=== PATIENT | female | born 1940 | race Caucasian/White ===

== ENCOUNTER → 2018-07-02 08:59 | Outpatient (CLI) | payer MEDICARE, SELFPAY ==
--- NOTE | 2018-07-02 | DI.US.S_ITS ---
PROCEDURE: US ABDOMEN COMPLETE INDICATIONS: NAUSEA TECHNIQUE: Real-time scanning was performed of the abdominal and retroperitoneal organs, with image documentation. COMPARISON: None. FINDINGS: Liver: Liver is normal in size and homogeneous in echotexture. Gallbladder: Gallbladder is normal in size. There is no gallbladder wall thickening, pericholecystic fluid, or cholelithiasis. Biliary ducts: Intrahepatic bile ducts are non-dilated. Extrahepatic bile duct caliber measures 5 mm. Normal is 6-7 mm or less in diameter, or 10 mm or less post-cholecystectomy. Pancreas: Visualized portions of the pancreas are sonographically normal. Spleen: Spleen is normal in size and homogeneous in echotexture. Kidneys: Kidneys are normal in size and echotexture. Right kidney measures 12.5 cm long; left kidney measures 12.3 cm long. No hydronephrosis or nephrolithiasis. No solid masses. Aorta: Visualized aorta is normal in caliber at less than 3 cm. Iliacs: Obscured by bowel gas. IVC: Intrahepatic inferior vena cava is patent. Miscellaneous: No free abdominal fluid. IMPRESSION: Unremarkable abdominal ultrasound. No cholelithiasis or hydronephrosis. Dictated by: Narciso Mcleod M.D. on 07/02/2018 at 9:24 Approved by: Narciso Mcleod M.D. on 07/02/2018 at 9:25
== END ==
PROVIDERS: PCP Nurse Practitioner Family; Visit Provider Nurse Practitioner Family
DX: R11.0 Nausea (principal)
CPT/HCPCS: 76700

== ENCOUNTER → 2019-09-19 10:50 | Outpatient (CLI) | payer MEDICARE, SELFPAY ==
--- NOTE | 2019-09-19 | DI.CT.S_ITS ---
PROCEDURE: CT ABDOMEN PELVIS W CON INDICATIONS: Right lower quadrant pain TECHNIQUE: After the administration of oral and intravenous contrast, 5 mm thick sections acquired from the diaphragms to the symphysis. 5 mm thick coronal and sagittal reformats were performed. For radiation dose reduction, the following was used: automated exposure control, adjustment of mA and/or kV according to patient size. COMPARISON: None. FINDINGS: Image quality: Excellent. ABDOMEN: Lung bases: Lung bases are clear. Heart size is normal. Solid organs: Liver is normal in size and enhancement. Gallbladder appears normal. Biliary system is non-dilated. Pancreas enhances normally. Spleen is normal in size and enhancement. No adrenal nodules. Kidneys are normal in size and enhancement, without hydronephrosis. Peritoneum and bowel: Stomach, small bowel, and colon loops are normal in caliber and wall thickness. No free fluid or air. Nodes and vessels: No retroperitoneal or mesenteric adenopathy. Aorta and inferior vena cava are normal in caliber. Miscellaneous: No ventral hernias. PELVIS: Genitourinary: Bladder wall thickness is normal. Miscellaneous: No inguinal hernias or adenopathy. There is sigmoid diverticulosis without acute diverticulitis. A normal appendix is found at the right lower quadrant. Bones: No suspicious bony lesions. No vertebral body compression fractures. IMPRESSION: Source of current right lower quadrant pain is not identified. A normal appendix was located emanating from the cecum. Sigmoid diverticulosis on the left is present, relatively prominent, but without acute diverticulitis or extension of inflammatory change from left to right. Dictated by: Mitch Candelario M.D. on 09/19/2019 at 15:53 Approved by: Mitch Candelario M.D. on 09/19/2019 at 15:55
[2019-09-19 11:24] LABS: Alanine Aminotransferase 25 IU/L (<35); Albumin Globulin Ratio 1.3 (1.0-2.8); Alkaline Phosphatase 101 U/L (38-126); Aspartate Aminotransferase 41 IU/L (14-36); Bilirubin Total 0.6 mg/dL (0.2-1.3); Blood Urea Nitrogen 15 mg/dL (7-17); Carbon Dioxide 33 mmol/L (22-32); Chloride 99 mmol/L (98-107); Estimated Glomerular Filt Rate > 60.0 mL/min (>60); Globulin 3.2 g/dL (1.7-4.1); Glucose 102 mg/dL (80-110); HEMOLYSIS < 15 (0-50); Potassium 3.6 mmol/L (3.4-5.1); Sodium 139 mmol/L (137-145); Total Protein 7.2 g/dL (6.3-8.2)
== END ==
PROVIDERS: PCP Nurse Practitioner Family; Visit Provider Family Medicine
DX: R10.31 Right lower quadrant pain (principal); K57.30 Diverticulosis of large intestine without perforation or abscess without bleeding
CPT/HCPCS: 36415; 74177; 80053; Q9967

== ENCOUNTER → 2020-10-04 09:08 | Outpatient (CLI) | payer MEDICARE, SELFPAY ==
--- NOTE | 2020-10-04 09:12 | DI.ECHO.S_ITS ---
Version: 1 Study ID: [id number] [place] [address] Name: CORNELL ROSALES Study Date: 10/04/2020, 9: 45 AM : 1940 BP: 145 / 84 mmHg Gender: Female Height: 62 in Age: 80 Years Weight: 176 lb BSA: 1.81 mA? Ordering: CESAR SIEGEL Referring: ABBEY ANGUIANO Clinician: Tatiana Santana Reason For Study: PERICARDIAL EFFUSION History: Summary Statements This is a limited echo to evaluate for possible pericardial effusion. Normal sinus rhythm. Normal LV size, wall thickness, wall motion and LV systolic function. EF is 60-65%. There is trace pericardial effusion with no evidence of tamponade. Compared to prior study 07/23/2020, moderate to large pericardial effusion is no longer seen. Procedure: A two-dimensional transthoracic echocardiogram with color flow and Doppler was performed in limited views only. The study quality was technically adequate. Left Ventricle: The ejection fraction is estimated to be 60-65%. The left ventricle is normal in size and wall thickness. Right Ventricle: Atria: Mitral Valve: Aortic Valve: Pulmonic Valve: Great Vessels: The IVC is of normal diameter and collapses greater than 50% with a sniff. This suggests a low right atrial pressure of 3 mm Hg. Pericardium/ Pleura: There is a trivial pericardial effusion noted. There is no pleural effusion. 2D and M-Mode Measurements and Calculations LVIDd: 4.7 cm LVIDs: 3.0 cm IVSd: 0.73 cm LVPWd: 0.89 cm LV freedman. diameter/BSA (cm/m^2): 2.6 LV sys. diameter/BSA (cm/m^2): 1.68 IVC diam: 1.32 cm Electronically signed by: Cesar Siegel M.D. 10/06/2020, 8: 29 AM
== END ==
PROVIDERS: PCP Family Medicine; Referring Provider Internal Medicine; Visit Provider Internal Medicine
DX: I31.3 Pericardial effusion (noninflammatory) (principal)
CPT/HCPCS: 93307

== ENCOUNTER → 2021-05-07 10:57 | Outpatient (CLI) | payer MEDICARE, SELFPAY ==
[2021-05-07 20:29] LABS: Alanine Aminotransferase 19 IU/L (<35); Albumin 3.8 g/dL (3.5-5.0); Albumin Globulin Ratio 1.3 (1.0-2.8); Alkaline Phosphatase 97 U/L (38-126); Aspartate Aminotransferase 26 IU/L (14-36); Bilirubin Total 0.7 mg/dL (0.2-1.3); Blood Urea Nitrogen 15 mg/dL (7-17); Calcium 9.8 mg/dL (8.4-10.2); Carbon Dioxide 31 mmol/L (22-32); Chloride 103 mmol/L (98-107); Estimated Glomerular Filt Rate > 60.0 mL/min (>60); Glucose 93 mg/dL (80-110); HEMOLYSIS < 15 (0-50); Sodium 139 mmol/L (137-145); Total Protein 6.8 g/dL (6.3-8.2)
[2021-05-07 20:37] LABS: High Sensitivity CRP - Cardiac 5.8 mg/L (1.0-3.0)
== END ==
PROVIDERS: PCP Family Medicine; Visit Provider Physician Assistant
DX: E87.6 Hypokalemia (principal); I10 Essential (primary) hypertension; R79.82 Elevated C-reactive protein (CRP)
CPT/HCPCS: 80053; 86140

== ENCOUNTER → 2022-05-15 14:11 | Outpatient (CLI) | payer MEDICARE, SELFPAY ==
[2022-05-15 20:30] LABS: Alanine Aminotransferase 18 IU/L (<35); Albumin 3.6 g/dL (3.5-5.0); Albumin Globulin Ratio 1.2 (1.0-2.8); Alkaline Phosphatase 101 U/L (38-126); Aspartate Aminotransferase 22 IU/L (14-36); BUN Creatinine Ratio 23.6 (6-22); Bilirubin Total 0.5 mg/dL (0.2-1.3); Blood Urea Nitrogen 17 mg/dL (7-17); Calcium 8.6 mg/dL (8.4-10.2); Carbon Dioxide 29 mmol/L (22-32); Chloride 102 mmol/L (98-107); Estimated Glomerular Filt Rate > 60 mL/min (>60); Globulin 2.9 g/dL (1.7-4.1); Glucose 106 mg/dL (80-110); HEMOLYSIS < 15 (0-50); Potassium 3.5 mmol/L (3.4-5.1); Sodium 139 mmol/L (137-145); Total Protein 6.5 g/dL (6.3-8.2)
[2022-05-15 20:40] LABS: Add Manual Diff / Slide Review NO; Basophils Absolute Auto 100 /uL (0-100); Basophils Percent Auto 0.9 % (0-2); Eosinophils Absolute Auto 200 /uL (0-450); Eosinophils Percent Auto 3.2 % (2-4); Hematocrit 40.5 % (36-46); Hemoglobin 13.9 g/dL (12.0-16.0); Lymphocytes Absolute Auto 1400 /uL (1100-4500); Lymphocytes Percent Auto 18.5 % (25-40); Mean Corpuscular HGB Conc 34.4 % (30-36); Mean Corpuscular Hemoglobin 33.4 PG (26-34); Mean Corpuscular Volume 97.1 fL (80-100); Monocytes Absolute Auto 400 /uL (0-900); Monocytes Percent Auto 5.5 % (3-14); Neutrophils Absolute Auto 5500 /uL (1500-7000); Neutrophils Percent Auto 71.9 % (50-75); Platelet Count 223 X10^3/uL (150-400); Red Blood Cell Count 4.17 X10^6/uL (4.0-5.2); White Blood Cell Count 7.7 X10^3/uL (4.5-11.0)
[2022-05-15 20:48] LABS: Free T4, Direct Thyroxine 1.12 ng/dL (0.78-2.19)
== END ==
PROVIDERS: PCP Internal Medicine; Visit Provider Internal Medicine
DX: R60.1 Generalized edema (principal); R06.00 Dyspnea, unspecified
CPT/HCPCS: 80053; 84439; 84443; 85025

== ENCOUNTER → 2022-07-30 10:54 | Outpatient (CLI) | payer MEDICARE, SELFPAY ==
--- NOTE | 2022-07-30 | DI.ECHO.S_ITS ---
[facility]---------+ [facility] +---------+ : : [address] : : : : [id number] : : : : Phone: [phone] Echocardiogram Report + + :Name: CORNELL ROSALES Study Date: 07/30/2022 Height: 63 in : :[facility] ReadingLocation: Weight: 186 lb : : Gender: Female BSA: 1.9 m2 : :: 1940 Age: 82 yrs BP: 141/80 mmHg: :Reason For Study: DYSPNEA : :Ordering Physician: ROBBIN, : :CESAR Performed By: Tatiana Santana : :Referring: CESAR SIEGEL : + + Interpretation Summary Normal sinus rhythm. Normal LV size and wall thickness. Normal wall motion and LV systolic function; EF is 60-65%. Stage I diastolic dysfunction. Normal chamber sizes. No significant valvular abnormalities. No prior study available for comparison. Procedure: A two-dimensional transthoracic echocardiogram with color flow and Doppler was performed. The study quality was technically adequate. Comparison is made with the echocardiogram of 10/04/2020. The patient was in sinus rhythm with heart rates between 59-67 bpm during the exam. Left Ventricle: The left ventricle is normal in size and wall thickness. The ejection fraction is estimated to be 60-65%. Right Ventricle: The right ventricle is normal size. The right ventricular systolic function is normal. Atria: The left atrial size is normal. Right atrial size is normal. There is no Doppler evidence for an interatrial shunt. Mitral Valve: The mitral valve leaflets appear borderline thickened, but open well. There is moderate mitral annular calcification. There is mild mitral regurgitation. Aortic Valve: The aortic valve is trileaflet. The aortic valve opens well. There is no aortic valve stenosis. No aortic regurgitation is present. Tricuspid Valve: The tricuspid valve is normal in structure and function. There is mild tricuspid regurgitation. The right ventricular systolic pressure is estimated to be at least 31 mmHg based on an estimated right atrial pressure of 3 mm Hg. Pulmonic Valve: The pulmonic valve leaflets are thin and pliable; valve motion is normal. There is trace pulmonic regurgitation. Great Vessels: The aortic root is normal size. The dimensions of the ascending aorta are normal. The IVC is of normal diameter and collapses greater than 50% with a sniff. This suggests a low right atrial pressure of 3 mm Hg. Pericardium/ Pleura There is no pericardial effusion. There is no pleural effusion. MMode/2D Measurements & Calculations LVIDd: 4.5 cm LVOT diam: 2.0 cm LVIDs: 2.8 cm Ao root diam: 3.0 cm FS: 38.5 % asc Aorta Diam: 3.6 cm IVSd: 0.89 cm Ao Arch Diam (Prox Trans): 2.5 cm LVPWd: 1.0 cm LV freedman. diameter/BSA (cm/m^2): 2.4 LV sys. diameter/BSA (cm/m^2): 1.5 LA A2 area: 15.5 cm2 RA long axis: 4.7 cm LA A4 area: 14.9 cm2 RA area: 13.9 cm2 LA length (vol): 4.7 cm RA vol: 35.0 ml LA vol: 42.0 ml RA : 18.7 ml/m2 LA vol index: 22.4 ml/m2 IVC diam: 1.1 cm RVD1 (basal): 2.6 cm RVD2 (mid): 2.5 cm TAPSE: 1.7 cm Doppler Measurements & Calculations Ao V2 max: 124.1 cm/sec LVOT Max Ru: 108.5 cm/sec Ao V2 mean: 87.4 cm/sec LV V1 max P.7 mmHg Ao max P.2 mmHg LV V1 VTI: 26.6 cm Ao mean P.4 mmHg PATRICK(I,D): 2.8 cm2 Ao V2 VTI: 28.9 cm PATRICK(V,D): 2.7 cm2 sev ratio: 0.92 PATRICK indexed to BSA (cm^2/m^2): 1.5 MV E max ru: 89.5 cm/sec TR max ru: 263.3 cm/sec MV A max ru: 116.3 cm/sec TR max P.7 mmHg MV E/A: 0.77 PA V2 max: 88.0 cm/sec Med Peak E' Ru: 6.1 cm/sec PA V2 mean: 59.3 cm/sec E/E' med: 14.6 PA mean P.6 mmHg Lat Peak E' Ru: 8.1 cm/sec PA pr(Accel): 13.9 mmHg E/E' lat: 11.1 E/e' average: 12.9 MV dec time: 0.28 sec SV(LVOT): 81.7 ml Electronically signed by: Cesar Siegel M.D. on Reading Physician:08/04/2022 05:45 AM
== END ==
PROVIDERS: PCP Family Medicine; Referring Provider Internal Medicine; Visit Provider Internal Medicine
DX: I08.1 Rheumatic disorders of both mitral and tricuspid valves (principal); R06.00 Dyspnea, unspecified
CPT/HCPCS: 93306

== ENCOUNTER → 2023-01-26 13:26 | Outpatient (CLI) | payer MEDICARE, SELFPAY ==
[2023-01-26 20:15] LABS: Add Manual Diff / Slide Review NO; Basophils Absolute Auto 100 /uL (0-100); Basophils Percent Auto 0.8 % (0-2); Eosinophils Absolute Auto 100 /uL (0-450); Eosinophils Percent Auto 1.5 % (2-4); Hematocrit 44.2 % (36-46); Hemoglobin 15.2 g/dL (12.0-16.0); Lymphocytes Absolute Auto 1600 /uL (1100-4500); Lymphocytes Percent Auto 19.1 % (25-40); Mean Corpuscular HGB Conc 34.4 % (30-36); Mean Corpuscular Hemoglobin 33.2 PG (26-34); Mean Corpuscular Volume 96.4 fL (80-100); Monocytes Absolute Auto 500 /uL (0-900); Neutrophils Absolute Auto 5900 /uL (1500-7000); Neutrophils Percent Auto 72.6 % (50-75); Platelet Count 237 X10^3/uL (150-400); Red Blood Cell Count 4.59 X10^6/uL (4.0-5.2); Red Cell Distribution Width 14.1 % (11.6-14.8); White Blood Cell Count 8.1 X10^3/uL (4.5-11.0)
[2023-01-26 20:31] LABS: Blood Urea Nitrogen 17 mg/dL (7-17); Calcium 9.2 mg/dL (8.4-10.2); Carbon Dioxide 28 mmol/L (22-32); Chloride 103 mmol/L (98-107); Estimated Glomerular Filt Rate > 60 mL/min (>60); Glucose 91 mg/dL (80-110); HEMOLYSIS < 15 (0-50); Potassium 4.2 mmol/L (3.4-5.1); Sodium 136 mmol/L (137-145)
[2023-01-26 20:35] LABS: Erythrocyte Sedimentation Rate 18 MM/HR (0-20)
[2023-01-29 15:58] LABS: ANA Screen, IFA Negative (.)
== END ==
PROVIDERS: PCP Family Medicine; Visit Provider Family Medicine
DX: M25.561 Pain in right knee (principal); M25.562 Pain in left knee; M79.10 Myalgia, unspecified site
CPT/HCPCS: 80048; 85025; 85651; 86038

== ENCOUNTER → 2023-02-12 08:47 | Outpatient (CLI) | payer MEDICARE, SELFPAY ==
--- NOTE | 2023-02-12 08:48 | DI.US.S_ITS ---
LIMITED ULTRASOUND OF RIGHT BREAST: 02/12/2023 CLINICAL: Abnormal mammogram. Comparison is made to exams dated: 02/12/2023 mammogram - [facility], 01/20/2023 mammogram, 04/16/2021 mammogram, and 09/13/2019 mammogram - Outside facility. Color flow and real-time ultrasound of the right breast 10-11 o'clock region were performed. Liu scale images of the real-time examination were reviewed. There is a benign 1 cm x 1 cm x 0.5 cm oval simple cyst in the right breast at 11 o'clock anterior depth 3 cm from the nipple. This oval simple cyst is anechoic. This correlates with mammography findings. Color flow imaging demonstrates that there is no vascularity present. There also is a benign 0.8 cm x 0.7 cm x 0.4 cm oval simple cyst in the right breast at 10 o'clock anterior depth 2 cm from the nipple. This oval simple cyst is anechoic. This correlates as an incidental finding. Color flow imaging demonstrates that there is no vascularity present. IMPRESSION: BENIGN There is no sonographic evidence of malignancy. The 1 cm simple cyst in the right breast at 11 o'clock anterior depth is benign. The 0.8 cm simple cyst in the right breast at 10 o'clock anterior depth is benign. A 1 year screening mammogram is recommended. Exam findings were conveyed to the patient. This exam was interpreted at Station ID: [id number]. Electronically Signed By: Zander Zaman M.D. [facility] [place]/:02/12/2023 09:48:17 Entry: - 02/12/2023 11:21:03 Ultrasound BI-RADS: 2 Benign
--- NOTE | 2023-02-12 08:48 | DI.MG.S_ITS ---
BILATERAL DIGITAL DIAGNOSTIC MAMMOGRAM 3D/2D WITH ADDITIONAL VIEWS: 02/12/2023 CLINICAL: Additional evaluation requested from prior study. Comparison is made to exams dated: 01/20/2023 mammogram, 04/16/2021 mammogram, and 09/13/2019 mammogram - Outside facility. Both breasts are heterogeneously dense, which may obscure small masses (category c / 51-75% glandular tissue). There is an oval mass with an obscured and circumscribed margin in the right breast at 11 o'clock anterior depth. There is an oval mass with an obscured and circumscribed margin in the left breast at 12 o'clock anterior depth. No other significant masses or calcifications are seen in either breast. IMPRESSION: INCOMPLETE: NEEDS ADDITIONAL IMAGING EVALUATION The oval mass in the right breast at 11 o'clock anterior depth resembles a cyst and is indeterminate. The oval mass in the left breast at 12 o'clock anterior depth resembles a cyst and is indeterminate. A targeted ultrasound is recommended and will immediately follow. Based on the Tyrer Cuzick model (a risk assessment model) the patient's lifetime risk is 1.0% and her 10 year risk is 0.0%. According to the ACR, ACS, and NCCN guidelines, an annual breast MRI exam along with mammogram is recommended if the patient's lifetime risk is 20% or greater. This exam was interpreted at Station ID: [id number]. NOTE: For mammograms, a report in lay terms will be sent to the patient. Approximately 15% of breast malignancies will not be visualized mammographically. In the management of a palpable breast mass, a negative mammogram must not discourage biopsy of a clinically suspicious lesion. Electronically Signed By: Zander Zaman M.D. slc/:02/12/2023 09:24:29 ACR BI-RADS Category 0: Incomplete 3340F
--- NOTE | 2023-02-12 08:48 | DI.US.S_ITS ---
LIMITED ULTRASOUND OF LEFT BREAST: 02/12/2023 CLINICAL: Abnormal mammogram. Comparison is made to exams dated: 02/12/2023 ultrasound - [facility], 01/20/2023 mammogram - Outside facility, 02/12/2023 mammogram - [facility], 04/16/2021 mammogram, and 09/13/2019 mammogram - Outside facility. Color flow and real-time ultrasound of the left breast 12 o'clock region were performed. Liu scale images of the real-time examination were reviewed. There is a benign 1.8 cm x 1.8 cm x 0.7 cm oval simple cyst in the left breast at 12 o'clock anterior depth 2 cm from the nipple. This oval simple cyst is anechoic. This correlates with mammography findings. Color flow imaging demonstrates that there is no vascularity present. IMPRESSION: BENIGN There is no sonographic evidence of malignancy. The 1.8 cm simple cyst in the left breast is benign. A 1 year screening mammogram is recommended. Exam findings were conveyed to the patient. This exam was interpreted at Station ID: [id number]. Electronically Signed By: Zander Zaman M.D. slc/:02/12/2023 09:45:34 letter sent: Normal Exam Ultrasound BI-RADS: 2 Benign
== END ==
PROVIDERS: PCP Family Medicine; Referring Provider Family Medicine; Visit Provider Family Medicine
DX: N60.01 Solitary cyst of right breast; R92.8 Other abnormal and inconclusive findings on diagnostic imaging of breast
CPT/HCPCS: 76642; 77066; G0279

== ENCOUNTER → 2023-07-02 11:45 | Outpatient (CLI) | payer MEDICARE, SELFPAY ==
--- NOTE | 2023-07-02 | DI.RAD.S_ITS ---
PROCEDURE: XR CHEST 2V INDICATIONS: SHORTNESS OF BREATH TECHNIQUE: 2 views of the chest were acquired. COMPARISON: [facility] ([place]), CR, XR CHEST 2V, 05/15/2022, 14:08. FINDINGS: Surgical changes and devices: None. Lungs and pleura: Lungs are clear. No pleural effusions or pneumothorax. Mediastinum: Mediastinal contours are normal. Heart size is normal. Bones and chest wall: No suspicious bony abnormalities. Soft tissues appear unremarkable. IMPRESSION: No acute cardiopulmonary abnormality is seen. Dictated by: Susan Andino MD, PhD on 07/02/2023 at 13:19 Approved by: Susan Andino MD, PhD on 07/02/2023 at 13:20
== END ==
PROVIDERS: PCP Family Medicine; Referring Provider Internal Medicine; Visit Provider Internal Medicine
DX: R06.00 Dyspnea, unspecified (principal); R06.02 Shortness of breath
CPT/HCPCS: 71046

== ENCOUNTER → 2023-07-07 14:53 | Outpatient (CLI) | payer MEDICARE, SELFPAY ==
[2023-07-07 15:52] LABS: Aspartate Aminotransferase 25 IU/L (14-36); BUN Creatinine Ratio 27.6 (6-22); Blood Urea Nitrogen 21 mg/dL (7-17); Calcium 9.4 mg/dL (8.4-10.2); Carbon Dioxide 30 mmol/L (22-32); Chloride 101 mmol/L (98-107); Cholesterol 138 mg/dL (140-199); Estimated Glomerular Filt Rate > 60 mL/min (>60); Glucose 99 mg/dL (80-110); HDL Cholesterol 34 mg/dL (40-60); LDL Cholesterol Calculated 75 mg/dL (<100); Potassium 3.9 mmol/L (3.4-5.1); Sodium 137 mmol/L (137-145); Triglycerides 147 mg/dL (35-150)
[2023-07-07 15:58] LABS: HEMOLYSIS 57 (0-50)
== END ==
PROVIDERS: PCP Internal Medicine; Referring Provider Internal Medicine; Visit Provider Internal Medicine
DX: E78.2 Mixed hyperlipidemia (principal)
CPT/HCPCS: 36415; 80048; 80061; 84450

== ENCOUNTER → 2024-01-14 14:11 | Outpatient (CLI) | payer MEDICARE, SELFPAY ==
[2024-01-14 15:10] LABS: Hematocrit 43.7 % (36-46); Mean Corpuscular HGB Conc 34.4 % (30-36); Mean Corpuscular Hemoglobin 33.6 PG (26-34); Mean Corpuscular Volume 97.8 fL (80-100); Platelet Count 219 X10^3/uL (150-400); Red Blood Cell Count 4.47 X10^6/uL (4.0-5.2); Red Cell Distribution Width 13.9 % (11.6-14.8)
[2024-01-14 16:09] LABS: Alanine Aminotransferase 21 IU/L (<35); Albumin 3.8 g/dL (3.5-5.0); Albumin Globulin Ratio 1.2 (1.0-2.8); Alkaline Phosphatase 115 U/L (38-126); Aspartate Aminotransferase 25 IU/L (14-36); BUN Creatinine Ratio 26.8 (6-22); Bilirubin Total 0.6 mg/dL (0.2-1.3); Blood Urea Nitrogen 19 mg/dL (7-17); Carbon Dioxide 29 mmol/L (22-32); Chloride 105 mmol/L (98-107); Cholesterol 146 mg/dL (140-199); Estimated Glomerular Filt Rate > 60 mL/min (>60); Globulin 3.3 g/dL (1.7-4.1); Glucose 120 mg/dL (80-110); HDL Cholesterol 37 mg/dL (40-60); HEMOLYSIS < 15 (0-50); LDL Cholesterol Calculated 84 mg/dL (<100); Potassium 3.6 mmol/L (3.4-5.1); Sodium 139 mmol/L (137-145); Total Protein 7.1 g/dL (6.3-8.2); Triglycerides 125 mg/dL (35-150)
[2024-01-14 16:38] LABS: TSH w/ Reflex to FT4 1.06 uIU/mL (0.47-4.68)
== END ==
PROVIDERS: PCP Internal Medicine; Referring Provider Internal Medicine; Visit Provider Internal Medicine
DX: E78.2 Mixed hyperlipidemia (principal); I10 Essential (primary) hypertension
CPT/HCPCS: 80053; 80061; 84443; 85027

== ENCOUNTER → 2024-04-20 13:12 | Outpatient (CLI) | payer MEDICARE, SELFPAY ==
--- NOTE | 2024-04-20 13:13 | DI.NM.S_ITS ---
PROCEDURE: NM EXERCISE TREADMILL NON NUC COMPARISON: None. INDICATIONS: DYSPNEA FINDINGS: The patient exercised for 3 minutes and 10 seconds reaching 90% of maximum predicted heart rate. Appropriate BP response to exercise. Reduced exercise capacity (3.3METs, LYLE +27%). No diagnostic ST changes and no ectopy during exercise or recovery. No angina during the study. IMPRESSION: Low risk, normal treadmill ECG stress test from inducible ischemia standpoint. Reduced exercise capacity (3.3METs, LYLE +27%). Dictated by: Maty De La Vega MD on 04/20/2024 at 17:15 Approved by: Maty De La Vega MD on 04/20/2024 at 17:16
--- NOTE | 2024-04-20 13:13 | DI.ECHO.S_ITS ---
[facility] +---------+ [facility] : : [address] : : [place] : : [id number] : : Phone: [phone] Echocardiogram Report + + :Name: CORNELL ROSALES Study Date: 04/20/2024 Height: 63 in : :[facility] ReadingLocation: Weight: 185 lb : : Gender: Female BSA: 1.9 m2 : :: 1940 Age: 84 yrs BP: 127/81 mmHg: :Reason For Study: DYSPNEA : :Ordering Physician: ROBBIN, : :CESAR Performed By: Tatiana Santana : :Referring: CESAR SIEGEL : + + Interpretation Summary Normal sinus rhythm. Normal LV size and wall thickness. Normal wall motion and LV systolic function; EF is 60-65%. Stage I diastolic dysfunction. Normal chamber sizes. No significant valvular abnormalities. Compared to prior echo 07/2022, no changes have occurred. Procedure: A two-dimensional transthoracic echocardiogram with color flow and Doppler was performed. The study quality was technically adequate. Comparison is made with the echocardiogram of 07/30/2022. The patient was in sinus rhythm with heart rates between 64-71 bpm during the exam. Left Ventricle: The left ventricle is normal in size and wall thickness. The ejection fraction is estimated to be 60-65%. Right Ventricle: The right ventricle is normal in size and function. Atria: The left atrial size is normal. Right atrial size is normal. There is no Doppler evidence for an interatrial shunt. Mitral Valve: There is mild mitral annular calcification. The mitral valve leaflets appear mildly thickened, but open well. There is mild mitral regurgitation. Aortic Valve: The aortic valve is trileaflet. The aortic valve opens well. There is no aortic valve stenosis. No aortic regurgitation is present. Tricuspid Valve: The tricuspid valve is normal in structure and function. There is mild tricuspid regurgitation. The right ventricular systolic pressure is estimated to be at least 28 mmHg based on an estimated right atrial pressure of 3 mm Hg. Pulmonic Valve: The pulmonic valve leaflets are thin and pliable; valve motion is normal. There is trace pulmonic regurgitation. Great Vessels: The aortic root is normal size. The dimensions of the ascending aorta are normal. The IVC is of normal diameter and collapses greater than 50% with a sniff. This suggests a low right atrial pressure of 3 mm Hg. Pericardium/ Pleura There is no pericardial effusion. There is no pleural effusion. MMode/2D Measurements & Calculations LVIDd: 4.2 cm LVOT diam: 2.0 cm LVIDs: 2.7 cm Ao root diam: 2.8 cm FS: 35.3 % asc Aorta Diam: 3.4 cm IVSd: 0.91 cm Ao Arch Diam (Prox Trans): 2.7 cm LVPWd: 0.76 cm LV freedman. diameter/BSA (cm/m^2): 2.2 LV sys. diameter/BSA (cm/m^2): 1.4 LA A2 area: 16.7 cm2 RA long axis: 4.8 cm LA A4 area: 14.3 cm2 RA area: 14.8 cm2 LA length (vol): 4.5 cm RA vol: 38.2 ml LA vol: 44.7 ml RA : 20.4 ml/m2 LA vol index: 23.9 ml/m2 IVC diam: 1.4 cm RVD1 (basal): 2.9 cm TAPSE: 1.8 cm Doppler Measurements & Calculations Ao V2 max: 139.6 cm/sec LVOT Max Ru: 134.2 cm/sec Ao V2 mean: 96.1 cm/sec LV V1 max P.2 mmHg Ao max P.8 mmHg LV V1 VTI: 29.8 cm Ao mean P.0 mmHg PATRICK(I,D): 3.1 cm2 Ao V2 VTI: 30.3 cm PATRICK(V,D): 3.1 cm2 sev ratio: 0.98 PATRICK indexed to BSA (cm^2/m^2): 1.7 MV E max ru: 87.1 cm/sec TR max ru: 251.4 cm/sec MV A max ru: 108.1 cm/sec TR max P.3 mmHg MV E/A: 0.81 PA V2 max: 87.2 cm/sec Med Peak E' Ru: 6.0 cm/sec PA V2 mean: 61.1 cm/sec E/E' med: 14.4 PA mean P.6 mmHg Lat Peak E' Ru: 7.0 cm/sec PA pr(Accel): 22.5 mmHg E/E' lat: 12.4 E/e' average: 13.4 MV dec time: 0.21 sec SV(LVOT): 95.2 ml Electronically signed by: Cesar Siegel M.D. on Reading Physician:04/24/2024 12:33 PM
== END ==
LOC: ECHO 13:12
PROVIDERS: Family Provider Internal Medicine; PCP Internal Medicine; Referring Provider Internal Medicine; Visit Provider Internal Medicine
DX: R06.00 Dyspnea, unspecified (principal); R06.02 Shortness of breath
CPT/HCPCS: 93017; 93306

== ENCOUNTER → 2024-05-04 11:47 | Outpatient (CLI) | payer MEDICARE, SELFPAY ==
[2024-05-04 13:40] LABS: COVID-19 CEPHEID 4-PLEX PCR POSITIVE (Negative); Influenza A - CEPHEID Flu A NEGATIVE (NEGATIVE); Influenza B - CEPHEID Flu B NEGATIVE (NEGATIVE); Respiratory Syncytial Virus Negative (Negative)
== END ==
PROVIDERS: Family Provider Internal Medicine; PCP Internal Medicine; Visit Provider Nurse Practitioner Family
DX: R05.1 Acute cough (principal)
CPT/HCPCS: 0241U

== ENCOUNTER → 2024-05-20 09:47 | Outpatient (CLI) | payer MEDICARE, SELFPAY ==
--- NOTE | 2024-05-20 09:48 | DI.RAD.S_ITS ---
PROCEDURE: XR CHEST 2V INDICATIONS: Cough TECHNIQUE: 2 views of the chest were acquired. COMPARISON: [facility], CR, XR CHEST 2V, 07/02/2023, 11:54. FINDINGS: Surgical changes and devices: None. Lungs and pleura: Lungs are clear. No pleural effusions or pneumothorax. Mediastinum: Mediastinal contours are normal. Heart size is normal. Bones and chest wall: No suspicious bony abnormalities. Soft tissues appear unremarkable. IMPRESSION: No acute cardiopulmonary process. Dictated by: Nithin Carter M.D. on 05/20/2024 at 14:36 Approved by: Nithin Carter M.D. on 05/20/2024 at 14:42
== END ==
PROVIDERS: Family Provider Internal Medicine; PCP Internal Medicine; Referring Provider Nurse Practitioner Family; Visit Provider Nurse Practitioner Family
DX: R05.9 Cough, unspecified (principal)
CPT/HCPCS: 71046

== ENCOUNTER → 2024-08-25 15:45 | Outpatient (CLI) | payer MEDICARE, SELFPAY ==
--- NOTE | 2024-08-25 15:47 | DI.MG.S_ITS ---
BILATERAL DIGITAL SCREENING MAMMOGRAM 3D/2D WITH CAD: 08/25/2024 CLINICAL: Routine screening. Comparison is made to exams dated: 01/20/2023 mammogram, 04/16/2021 mammogram, and 09/13/2019 mammogram - Outside facility. The breasts are heterogeneously dense, which may obscure small masses (category c / 51-75% glandular tissue). Current study was also evaluated with a Computer Aided Detection (CAD) system. There is a benign cyst in the right breast. There also are benign calcifications in both breasts. No significant masses, calcifications, or other findings are seen in either breast. There has been no significant interval change. IMPRESSION: BENIGN There is no mammographic evidence of malignancy. A 1 year screening mammogram is recommended. Based on the Tyrer Cuzick model (a risk assessment model) the patient's lifetime risk is 0.6% and her 10 year risk is 0.0%. According to the ACR, ACS, and NCCN guidelines, an annual breast MRI exam along with mammogram is recommended if the patient's lifetime risk is 20% or greater. This exam was interpreted at Station ID: [id number]. NOTE: For mammograms, a report in lay terms will be sent to the patient. Approximately 15% of breast malignancies will not be visualized mammographically. In the management of a palpable breast mass, a negative mammogram must not discourage biopsy of a clinically suspicious lesion. Electronically Signed By: Gita herr/jana:09/02/2024 10:54:30 copy to: ZAKIYA WALLACE letter sent: Normal Exam ACR BI-RADS Category 2: Benign
--- NOTE | 2024-08-25 15:48 | DI.RAD.S_ITS ---
PROCEDURE: XR CHEST 2V INDICATIONS: Acute cough TECHNIQUE: 2 views of the chest were acquired. COMPARISON: [facility], CR, XR CHEST 2V, 05/20/2024, 9:46. [facility], CR, XR CHEST 2V, 07/02/2023, 11:54. FINDINGS: Surgical changes and devices: None. Lungs and pleura: No dense consolidation or pleural effusions. Mediastinum: Normal heart size Bones and chest wall: Degenerative changes. IMPRESSION: No acute radiographic abnormality. Dictated by: Hernán Brooks M.D. on 08/25/2024 at 17:10 Approved by: Hernán Brooks M.D. on 08/25/2024 at 17:10
== END ==
PROVIDERS: Family Provider Internal Medicine; PCP Internal Medicine; Referring Provider Nurse Practitioner Family; Visit Provider Nurse Practitioner Family
DX: Z12.31 Encounter for screening mammogram for malignant neoplasm of breast (principal); R05.1 Acute cough; R06.02 Shortness of breath; R92.333 Mammographic heterogeneous density, bilateral breasts
CPT/HCPCS: 71046; 77063; 77067

== ENCOUNTER → 2025-02-17 10:00 | Outpatient (CLI) | payer MEDICARE, SELFPAY ==
--- NOTE | 2025-02-17 10:05 | DI.RAD.S_ITS ---
PROCEDURE: FL BARIUM SWALLOW INDICATIONS: dysphagia COMPARISON: [facility], CR, XR CHEST 2V, 08/25/2024, 15:46. FINDINGS: Function: There is normal esophageal peristalsis. No elicited gastroesophageal reflux. There is normal transit of a calibrated barium tablet through the esophagus into the stomach. Small hiatal hernia. Morphology: Air-contrast images demonstrate normal mucosal morphology. Single contrast views show no esophageal strictures, extrinsic mass effects, or diverticula. Limited images of the stomach demonstrate normal appearance. IMPRESSION: Small reducible hiatal hernia. Otherwise normal esophagram. Approved by: Emre Espino M.D. on 02/17/2025 at 20:40
== END ==
LOC: RAD 10:04
PROVIDERS: Family Provider Internal Medicine; PCP Nurse Practitioner Family; Referring Provider Nurse Practitioner Family; Visit Provider Nurse Practitioner Family
DX: R13.10 Dysphagia, unspecified (principal); R05.3 Chronic cough; K21.9 Gastro-esophageal reflux disease without esophagitis; R09.A2 Foreign body sensation, throat; K44.9 Diaphragmatic hernia without obstruction or gangrene
CPT/HCPCS: 74220

== ENCOUNTER → 2025-04-27 14:12 | Outpatient (CLI) | payer MEDICARE, SELFPAY ==
--- NOTE | 2025-04-27 14:13 | DI.RAD.S_ITS ---
PROCEDURE: XR DEXA AXIAL SKELETON INDICATIONS: OSTEOPENIA AFTER MENOPAUSE COMPARISON: None. FINDINGS: Lumbar Spine: Bone mineral density is 0.938 g/cm2, T score -1.0, normal. Left Femoral Neck: Bone mineral density is 0.622 g/cm2, T score -2.0. Left Hip: Bone mineral density 0.840 g/cm2, T score -0.8, normal. Fracture Risk Calculation (when applicable): 10-year fracture risk of a major osteoporotic fracture 15 percent and of a hip fracture 4.5 percent. (T score greater or equal to -1.0 to: NORMAL) (T score from -1.1 to -2.4: OSTEOPENIA) (T score less than or equal to -2.5: OSTEOPOROSIS) IMPRESSION: Left femoral neck osteopenia Follow-up guidelines as follows: Osteoporosis: Consider a repeat DEXA and Vertebral Fracture Assessment (VFA) exam in 2 years or sooner if medically necessary, to reassess this patient's status. Osteopenia: Consider a repeat DEXA in 2-3 years to reassess this patient's status, or if there is a new clinical indication. Normal: Consider a repeat DEXA in 5 years or sooner, or if there is a new clinical indication. All treatment decisions require clinical judgment and consideration of individual patient factors, including patient preferences, comorbidities, previous drug use, risk factors not captured in the FRAX model (e.g., frailty, falls, vitamin D deficiency, increased bone turnover, interval significant decline in bone density ) and possible under- or over-estimation of fracture risk by FRAX. In addition, the NOF Guide recommends that FDA-approved medical therapies be considered in postmenopausal women and men age >= 50 years with a: * Hip or vertebral (clinical or morphometric) fracture * T-score of <=-2.5 at the spine or hip * Ten-year fracture probability by FRAX of >= 3% for hip fracture or >=20% for major osteoporotic fracture. Approved by: Varun Hernandez M.D. on 04/28/2025 at 10:17
== END ==
LOC: RAD 14:13
PROVIDERS: Family Provider Internal Medicine; Referring Provider Nurse Practitioner Family; Visit Provider Nurse Practitioner Family
DX: M85.852 Other specified disorders of bone density and structure, left thigh (principal); Z78.0 Asymptomatic menopausal state
CPT/HCPCS: 77080

== ENCOUNTER → 2025-06-28 10:49 | Outpatient (CLI) | payer MEDICARE, SELFPAY ==
--- NOTE | 2025-06-28 10:53 | DI.RAD.S_ITS ---
PROCEDURE: XR ANKLE LT MIN 3V INDICATIONS: pain swelling supa lateral x 5 days TECHNIQUE: 3 views of the ankle were acquired. COMPARISON: None. FINDINGS: Bones: No fractures or dislocations. Ankle mortise is normally aligned. No suspicious bony lesions. The talar dome demonstrates no yessy abnormality. Age- appropriate bony degenerative changes are seen. A plantar calcaneal spur is seen. Soft tissues: Mild soft tissue swelling is seen laterally. IMPRESSION: Soft tissue swelling is seen, without an acute bony abnormality seen by plain film. If there is point tenderness (or other clinical suspicion for a fracture not seen on these images) then a dedicated CT or a short-term followup plain film series could be considered for further evaluation, as clinically appropriate. Dictated by: Mark Drake M.D. on 06/28/2025 at 10:39 Approved by: Mark Drake M.D. on 06/28/2025 at 10:40
== END ==
PROVIDERS: Family Provider Internal Medicine; Referring Provider Physician Assistant; Visit Provider Physician Assistant
DX: S99.919A Unspecified injury of unspecified ankle, initial encounter (principal); M25.472 Effusion, left ankle
CPT/HCPCS: 73610

== ENCOUNTER → 2025-07-07 15:41 | Outpatient (CLI) | payer MEDICARE, SELFPAY ==
[2025-07-07 17:15] LABS: Add Manual Diff / Slide Review NO; Hematocrit 42.5 % (36-46); Hemoglobin 14.6 g/dL (12.0-16.0); Lymphocytes Absolute Auto 1600 /uL (1100-4500); Mean Corpuscular HGB Conc 34.3 % (30-36); Mean Corpuscular Hemoglobin 32.8 PG (26-34); Mean Corpuscular Volume 95.7 fL (80-100); Platelet Count 241 X10^3/uL (150-400)
[2025-07-07 17:41] LABS: Alanine Aminotransferase 13 IU/L (<35); Albumin 3.7 g/dL (3.5-5.0); Albumin Globulin Ratio 1.2 (1.0-2.8); Alkaline Phosphatase 134 U/L (38-126); Blood Urea Nitrogen 24 mg/dL (7-17); Calcium 9.0 mg/dL (8.4-10.2); Carbon Dioxide 31 mmol/L (22-32); Chloride 100 mmol/L (98-107); Estimated Glomerular Filt Rate > 60 mL/min (>60); Globulin 3.1 g/dL (1.7-4.1); Glucose 83 mg/dL (70-99); HEMOLYSIS < 15 (0-50); Potassium 4.0 mmol/L (3.4-5.1); Sodium 137 mmol/L (137-145); Total Protein 6.8 g/dL (6.3-8.2); Uric Acid 4.5 mg/dL (2.5-6.2)
== END ==
PROVIDERS: Family Provider Internal Medicine; PCP Physician Assistant; Referring Provider Physician Assistant; Visit Provider Physician Assistant
DX: M25.579 Pain in unspecified ankle and joints of unspecified foot (principal); S99.919A Unspecified injury of unspecified ankle, initial encounter
CPT/HCPCS: 80053; 84550; 85025; 85651

== ENCOUNTER → 2025-07-12 13:53 | Outpatient (CLI) | payer MEDICARE, SELFPAY ==
--- NOTE | 2025-07-12 13:55 | DI.RAD.S_ITS ---
PROCEDURE: XR ANKLE LT MIN 3V INDICATIONS: continued pain/swelling supa lateral TECHNIQUE: 3 views of the ankle were acquired. COMPARISON: [facility], CR, XR ANKLE LT MIN 3V, 06/28/2025, 11:10. FINDINGS: Bones: No fractures identified. No periosteal reaction. No dislocations. Ankle mortise is normally aligned. No suspicious bony lesions. Small plantar calcaneal spur. Soft tissues: Mild soft tissue swelling at the lateral ankle. No tibiotalar joint effusion. Achilles tendon appears normal. IMPRESSION: No fracture identified. Mild swelling at the lateral ankle. Dictated by: Zander Zaman M.D. on 07/12/2025 at 14:29 Approved by: Zander Zaman M.D. on 07/12/2025 at 14:32
== END ==
PROVIDERS: Family Provider Internal Medicine; PCP Physician Assistant; Referring Provider Physician Assistant; Visit Provider Physician Assistant
DX: S93.409A Sprain of unspecified ligament of unspecified ankle, initial encounter (principal); M79.89 Other specified soft tissue disorders
CPT/HCPCS: 73610

== ENCOUNTER → 2025-07-28 10:18 | Outpatient (CLI) | payer MEDICARE, SELFPAY ==
--- NOTE | 2025-07-28 10:20 | DI.MG.S_ITS ---
US breast LT limited, MM diagnostic mammo BI: 07/28/2025 BI-RADS: 3 CLINICAL: 85-year old female for bilateral diagnostic mammogram and left diagnostic breast ultrasound. Tyrer-Cuzick lifetime risk of 0.3%. No personal or first- degree family history of breast cancer. The patient reports a palpable abnormality (1 month) in the left breast. PRIOR EXAMS 08/25/2024, 02/12/2023. MAMMOGRAPHY TECHNIQUE: 2D and 3D (tomosynthesis) digital mammographic views obtained, with additional images as needed for full coverage. Current study was also evaluated with a Computer Aided Detection (CAD) system. ULTRASOUND TECHNIQUE Real-time rowell scale and color doppler imaging of the area of clinical interest was performed with image documentation. Left targeted breast ultrasound of the area of clinical interest and the axilla was performed with image documentation. DENSITY C. The breasts are heterogeneously dense, which may obscure small masses. MAMMOGRAPHY FINDINGS Right: No suspicious mass, asymmetry, microcalcification, or other abnormality seen. Left (finding-1): Central, Retroareolar, Far Anterior depth, measuring 2.6cm: Correlating with palpable lump there is a circumscribed, oval, equal-density mass present. ULTRASOUND FINDINGS Left: Upper Outer at 1:00, 2 cm from nipple, measuring 0.7 x 0.5 x 0.3 cm: There is an oval, circumscribed, hypoechoic cyst vs solid mass that is parallel. Doppler shows no vascularity. This is an incidental finding. Left (finding-1): Upper at 12:00, Retroareolar, measuring 1.8 x 2.5 x 1.6 cm: Correlating with palpable lump and also with findings on mammogram, there is a simple anechoic cyst. Doppler shows no vascularity. Left: Upper at 12:00, Retroareolar, measuring 0.4 x 0.4 x 0.3 cm: There is a cyst with artifacts. Doppler shows no vascularity. This is an incidental finding. Left: Axilla: No abnormal lymph nodes are seen in the axilla. IMPRESSION: Right * No evidence of malignancy. Left (CvS): Upper Outer at 1:00, 2 cm from nipple, measuring 0.7 x 0.5 x 0.3 cm * Probably Benign. RECOMMENDATIONS Left: Upper Outer at 1:00, 2 cm from nipple * Six month followup with diagnostic ultrasound. COMMENTS: Findings and recommendations were conveyed to the patient during today's evaluation. OVERALL ASSESSMENT CATEGORY BI-RADS-3: Probably Benign. ELECTRONICALLY SIGNED: Rachel Andrews M.D. on 07/28/2025 at 02:59:01 PM PT Interpreting Station ID: [id number]
== END ==
PROVIDERS: Family Provider Internal Medicine; PCP Physician Assistant; Referring Provider Nurse Practitioner Family; Visit Provider Nurse Practitioner Family
DX: N63.42 Unspecified lump in left breast, subareolar (principal); N63.21 Unspecified lump in the left breast, upper outer quadrant; N64.4 Mastodynia; N60.02 Solitary cyst of left breast; R92.333 Mammographic heterogeneous density, bilateral breasts
CPT/HCPCS: 76642; 77066; G0279

== ENCOUNTER → 2025-08-11 09:58 | Outpatient (CLI) | payer MEDICARE, SELFPAY | LOC: LAB 09:58 | PROVIDERS: Family Provider Internal Medicine; PCP Physician Assistant; Visit Provider Nurse Practitioner Family | DX: J02.9 Acute pharyngitis, unspecified (principal) | CPT/HCPCS: 87070 ==